=== PATIENT | female | born 1985 | race Caucasian/White ===

== ENCOUNTER → 2018-07-30 | Outpatient (CLI) | payer BC ==
[~2018-07-30] MED LIST: AMOXICILLIN 8751 TAB; BCP; IBU600 MG PO; MOTRIN 600600 MG/TAB PO; NO HOME MEDICATIONS; NORCO 325 MG-51 TAB PO; PERCOCET 325 MG1 TA2 PO; PRENATAL1 TA1 PO; SENOKOT S 50 MG1 TAB PO; VICODIN 5/5001 UDTAB PO
== END ==
LOC: COL.RAD 08:45
DX: R51 Headache (principal)
CPT/HCPCS: A9585

== ENCOUNTER → 2020-05-21 | Outpatient (CLI) | payer BC | LOC: COL.LAB 09:30 | DX: Z20.828 Contact with and (suspected) exposure to other viral communicable diseases (principal) ==

== ENCOUNTER 2020-05-27 05:32 | Inpatient (IN) | payer BC ==
[~2020-05-27] VITALS: Ht 157.6 cm; Wt 62.7 kg
[2020-05-27] VITALS (21 sets, daily range): BP systolic 100–127; BP diastolic 52–80; PULSE 53–95; TEMP 97.3–98.2
--- NOTE | 2020-05-27 05:40 | NUR ---
Here for repeat c/s - to 210 for pre op. EFM on.iv started . .
[2020-05-27 06:33] LABS: BASO % 0.2 % (0.0-2.0); EOS # 0.1 (0.0-0.7); EOS % 0.7 % (0-4.0); GRAN # 5.3 (1.4-6.5); GRAN % 64.6 % (42.2-75.2); HEMATOCRIT 37.1 % (37.0-47.0); HEMOGLOBIN 12.5 g/dl (12.5-16.0); LYMPH % 24.4 % (20.0-51.0); MEAN CELL VOLUME 91 fl (80.0-100.0); MEAN CORPUSCULAR HEMOGLOBIN 31 pg (27.0-31.0); MEAN CORPUSCULAR HGB CONC 34 g/dl (33.0-37.0); MEAN PLATELET VOLUME 9.7 fl (7.4-10.4); MONO # 0.8 (0.1-0.6); MONO % 9.7 % (1.7-9.3); PLATELET COUNT 211 K/mm3 (130-400); RED BLOOD COUNT 4.06 M/mm3 (4.10-5.30); REDCELL DISTRIBUTION WIDTH-CV 13.2 % (11.5-14.5)
--- NOTE | 2020-05-27 06:42 | NUR ---
Patient off EFM,reactive strip. Mons pubis clipped, abdomen cleansed. VITOR Rosenbaum to room. Plan of care reivewed. Assessment complete. 2515-Ambulatory to OR with spouse.
--- NOTE | 2020-05-27 08:20 | NUR ---
0820-To PACU via bed. A&O x4. Plan of care reviewed. Recieved report from VITOR Rosenbaum. Abdomen with binder and dressing C/D/I. Fundal massage firm, phillipa WNL. Lopez to DD clear yellow urine. Will monitor per protocol.
--- NOTE | 2020-05-27 14:15 | NUR ---
1430-Patient up to bathroom, manriquez discontinued and luzma care provided. 1530-Patient ambulates in [place].
[2020-05-28 07:00] LABS: HEMATOCRIT 31.1 % (37.0-47.0); HEMOGLOBIN 10.3 g/dl (12.5-16.0)
[2020-05-28 08:19] VITALS: BP 111/73; PULSE 67; TEMP 97.8
[2020-05-28] MEDS ORDERED: IBU600 MG PO (08:46)
[2020-05-28] MEDS ORDERED: PERCOCET 325 MG1 TA2 PO (08:46)
--- NOTE | 2020-05-28 09:04 | NUR ---
REPORT RECEIVED FROM OFF GOING RN, ROXANA Boyce CARE TAKEN OVER BY THIS RN.
--- NOTE | 2020-05-28 10:16 | NUR ---
Patient showered, incisionchecked by this RN. Edges well approximated. No drainage or bleeding noted.
== END 2020-05-28 12:50 | disposition home or self-care (01) | DRG 788 ==
LOC: OB 05:32
PROVIDERS: ADMIT Obstetrics & Gynecology
PROC: 10D00Z1 Extraction of Products of Conception, Low, Open Approach (ICD-10-PCS; principal; 2020-05-27)
DX: O34.211 Maternal care for low transverse scar from previous cesarean delivery (principal); Z3A.39 39 weeks gestation of pregnancy; Z37.0 Single live birth
CPT/HCPCS: J0690; J1885; J2370; J2405; J2590; J3010; J7120